=== PATIENT | male | born 2000 | race Caucasian/White ===

== ENCOUNTER 2024-07-28 23:15 | Observation (INO) ==
[2024-07-28] MEDS: Oxymetazoline 0.05% NASAL SPR 15 ML BTL BOTH NARES ONE (23:45)
[2024-07-28] MEDS: Benzocaine/Butamben/Tetracain (CETACAINE - SINGLE USE) 5 gm TOPICAL ONE (23:45)
[2024-07-29] MEDS ORDERED: fentaNYL 100 mcg/2 ml 50 MCG/ML VIAL ONE (00:25)
[2024-07-29] MEDS ORDERED: Propofol 10 MG/ML 20 ML BTL ONE (00:25)
[2024-07-29] MEDS ORDERED: Succinylcholine 200 mg VIAL 20 mg/ml 10 ml VIAL (200 mg) ONE (00:26)
[2024-07-29] MEDS ORDERED: Ondansetron 4 mg VIAL 2 MG/ML 2 ml VIAL IV PRN (01:24)
[2024-07-29] MEDS ORDERED: Naloxone 0.4 mg VIAL 0.4 mg/ml 1 ml VIAL IV PRN (01:24)
[2024-07-29] MEDS ORDERED: fentaNYL 100 mcg/2 ml 50 MCG/ML VIAL IV PRN (01:24)
[2024-07-29 02:58] LABS: Rapid COVID-19 Molecular Undetected (Undetected)
[2024-07-29] MEDS: Acetaminophen IV 1 GM/100ML 1,000 MG/100 ML BAG IV ONE (03:21)
[2024-07-29 05:09] VITALS: BP 124/87
== END 2024-07-29 09:20 | disposition home or self-care (01) ==
LOC: ED 23:15 → MED 07-29 01:14 → OR 07-29 01:14
PROVIDERS: ADMIT Internal Medicine; ATTEND Internal Medicine